=== PATIENT | female | born 1965 | race African-American/Black ===

== ENCOUNTER 2018-02-18 04:48 | Inpatient (IN) ==
[2018-02-18] MEDS ORDERED: methylPREDNISolone SOD SUC 125 MG/2 ML VIAL IV STA (05:23)
[2018-02-18] MEDS ORDERED: ALBUTEROL/IPRATROPIUM 3 ML NEB RESP TX STA (05:23)
[2018-02-18] MEDS ORDERED: FUROSEMIDE 100 MG/10 ML VIAL IV STA (05:23)
[2018-02-18 05:30] LABS: Basophils % 0.3 % (0.0-0.8); Eosinophils # 0.2 10*3/uL (0.0-0.87); Eosinophils % 2.9 % (0.00-10.9); Hematocrit 35.7 VOL% (35.7-47.0); Hemoglobin 11.8 GM/DL (12.0-16.0); Immature Granulocytes % 0.5 %; Immature Granulocytes Absolute 0.04 #; Lymphocytes # 1.5 10*3/uL (1.4-4.0); Lymphocytes % 21.2 % (21.3-54.2); Mean Corpuscular HGB Conc 33.1 GM/DL (32-36); Mean Corpuscular Hemoglobin 29 PG (27-34); Mean Corpuscular Volume 87.9 FL (87-102); Mean Platelet Volume 11.1 FL (9.6-12.0); Monocytes # 0.5 10*3/uL (0.11-0.8); Neutrophils % 68.1 % (38.7-73.9); Platelet Count 299 T/CUMM (130-400); Red Blood Count 4.06 MC/CUMM (3.8-5.5); Red Cell Distribution Width 15.4 % (9.3-17.3); White Blood Count 7.3 T/CUMM (4-12)
[2018-02-18 05:34] LABS: INR 0.9; PT Patient Result 9.9 SECS
[2018-02-18 05:42] LABS: Albumin 3.6 G/DL (3.4-5.0); Bilirubin,Total 0.8 MG/DL (0.2-1.0); Calcium 8.6 MG/DL (8.5-10.1); Osmolality,Calculated 276.5 MOS/KG (273-304); Potassium 3.4 MMOL/L (3.5-5.1); Total Protein 7.2 G/DL (6.4-8.3)
[2018-02-18 05:57] LABS: ABG Base Excess -0.8 MMOL/L (-2.5-2.5); ABG HCO3 23.8 MMOL/L (20-26); ABG Oxygen Saturation 98.2 % (95-100); ABG PCO2 41.3 MM HG (35-48); ABG PH 7.379 (7.35-7.45); ABG TCO2 21.7 MMOL/L (23-27); Allen Test Positive
[2018-02-18] MEDS ORDERED: ASPIRIN CHEW 81 MG TABLET PO STA (06:22)
[2018-02-18] MEDS ORDERED: ALBUTEROL/IPRATROPIUM 3 ML NEB RESP TX PRN (08:55)
[2018-02-18] MEDS ORDERED: ALBUTEROL 2.5 MG/3 ML NEB RESP TX PRN (08:56)
[2018-02-18] MEDS ORDERED: GABAPENTIN 600 MG TABLET PO SCH (09:00)
[2018-02-18] MEDS: hydrALAZINE 10 MG TABLET PO SCH (11:13)
[2018-02-18] MEDS: oxyCODONE/ACETAMINOPHEN 5-325 MG TABLET PO PRN (11:13)
[2018-02-18] MEDS: DULoxetine 20 MG CAPSULE PO SCH (11:13)
[2018-02-18] MEDS: FOLIC ACID 1 MG TABLET PO SCH (11:13)
[2018-02-18] MEDS: PANTOPRAZOLE 40 MG TABLET PO SCH (11:13)
[2018-02-18] MEDS: predniSONE 5 MG TABLET PO SCH (11:13)
[2018-02-18] MEDS: GABAPENTIN 300 MG CAPSULE PO SCH ×2 (15:55→20:51)
[2018-02-18] MEDS: FUROSEMIDE 40 MG/4 ML VIAL IV SCH (15:57)
[2018-02-18] MEDS ORDERED: tiZANidine 4 MG TABLET PO PRN (17:17)
[2018-02-18] MEDS: TEMAZEPAM 15 MG CAPSULE PO PRN (20:51)
[2018-02-18] MEDS: POTASSIUM CHLORIDE 20 MEQ TABLET PO PRN ×2 (20:51→22:47)
[2018-02-18] MEDS: tiZANidine 4 MG TABLET PO PRN (20:52)
[2018-02-19] MEDS: POTASSIUM CHLORIDE 20 MEQ TABLET PO PRN (00:55)
[2018-02-19 06:52] LABS: Basophils % 0.1 % (0.0-0.8); Eosinophils % 0.2 % (0.00-10.9); Hemoglobin 12.5 GM/DL (12.0-16.0); Immature Granulocytes % 0.6 %; Immature Granulocytes Absolute 0.07 #; Lymphocytes # 1.4 10*3/uL (1.4-4.0); Lymphocytes % 11.2 % (21.3-54.2); Mean Corpuscular HGB Conc 32.1 GM/DL (32-36); Mean Corpuscular Hemoglobin 28 PG (27-34); Mean Corpuscular Volume 87.2 FL (87-102); Mean Platelet Volume 11.5 FL (9.6-12.0); Monocytes # 1.3 10*3/uL (0.11-0.8); Monocytes % 10.1 % (1.7-12.7); Neutrophils # 9.9 10*3/uL (1.4-7.4); Neutrophils % 77.8 % (38.7-73.9); Platelet Count 359 T/CUMM (130-400); Red Blood Count 4.47 MC/CUMM (3.8-5.5); Red Cell Distribution Width 15.7 % (9.3-17.3); White Blood Count 12.7 T/CUMM (4-12)
[2018-02-19 07:29] LABS: Calcium 9.3 MG/DL (8.5-10.1); Osmolality,Calculated 273.7 MOS/KG (273-304); Potassium 4.1 MMOL/L (3.5-5.1)
[2018-02-19] MEDS: predniSONE 5 MG TABLET PO SCH (08:50)
[2018-02-19] MEDS: hydrALAZINE 10 MG TABLET PO SCH (08:50)
[2018-02-19] MEDS: DULoxetine 20 MG CAPSULE PO SCH (08:50)
[2018-02-19] MEDS: PANTOPRAZOLE 40 MG TABLET PO SCH (08:51)
[2018-02-19] MEDS: GABAPENTIN 300 MG CAPSULE PO SCH ×3 (08:51→20:27)
[2018-02-19] MEDS: oxyCODONE/ACETAMINOPHEN 5-325 MG TABLET PO PRN ×2 (09:00→18:02)
[2018-02-19] MEDS: tiZANidine 4 MG TABLET PO PRN ×2 (09:01→18:02)
[2018-02-19] MEDS: FUROSEMIDE 40 MG/4 ML VIAL IV SCH ×2 (09:02→15:29)
[2018-02-19] MEDS: FOLIC ACID 1 MG TABLET PO SCH (15:36)
[2018-02-19] MEDS: ENOXAPARIN 40 MG/0.4 ML SYRINGE SUBCUT SCH (18:03)
[2018-02-19] MEDS: TEMAZEPAM 15 MG CAPSULE PO PRN (20:27)
[2018-02-19] MEDS: HYDROcodone/CHLORPHENIRAMINE ER 5 ML UDCUP PO PRN (22:40)
[2018-02-20] MEDS: DULoxetine 20 MG CAPSULE PO SCH (08:48)
[2018-02-20] MEDS: FUROSEMIDE 40 MG/4 ML VIAL IV SCH ×2 (08:48→15:52)
[2018-02-20] MEDS: oxyCODONE/ACETAMINOPHEN 5-325 MG TABLET PO PRN ×3 (08:48→23:24)
[2018-02-20] MEDS: hydrALAZINE 10 MG TABLET PO SCH (08:48)
[2018-02-20] MEDS: GABAPENTIN 300 MG CAPSULE PO SCH ×3 (08:48→20:31)
[2018-02-20] MEDS: predniSONE 5 MG TABLET PO SCH (08:48)
[2018-02-20] MEDS: FOLIC ACID 1 MG TABLET PO SCH (08:48)
[2018-02-20] MEDS: PANTOPRAZOLE 40 MG TABLET PO SCH (08:48)
[2018-02-20] MEDS: tiZANidine 4 MG TABLET PO PRN ×3 (08:48→23:24)
[2018-02-20] MEDS: ENOXAPARIN 40 MG/0.4 ML SYRINGE SUBCUT SCH (15:52)
[2018-02-20] MEDS: TEMAZEPAM 15 MG CAPSULE PO PRN (20:31)
[2018-02-20] MEDS: HYDROcodone/CHLORPHENIRAMINE ER 5 ML UDCUP PO PRN (20:54)
[2018-02-21 03:25] VITALS: BP 119/76
[2018-02-21 06:06] LABS: Basophils % 0.4 % (0.0-0.8); Eosinophils # 0.2 10*3/uL (0.0-0.87); Eosinophils % 2.2 % (0.00-10.9); Hematocrit 41.8 VOL% (35.7-47.0); Hemoglobin 12.9 GM/DL (12.0-16.0); Immature Granulocytes % 0.6 %; Immature Granulocytes Absolute 0.06 #; Lymphocytes # 2.8 10*3/uL (1.4-4.0); Lymphocytes % 29.7 % (21.3-54.2); Mean Corpuscular HGB Conc 30.9 GM/DL (32-36); Mean Corpuscular Hemoglobin 28 PG (27-34); Mean Corpuscular Volume 89.1 FL (87-102); Mean Platelet Volume 11.4 FL (9.6-12.0); Monocytes # 0.9 10*3/uL (0.11-0.8); Neutrophils # 5.4 10*3/uL (1.4-7.4); Neutrophils % 57.1 % (38.7-73.9); Platelet Count 388 T/CUMM (130-400); Red Blood Count 4.69 MC/CUMM (3.8-5.5); Red Cell Distribution Width 15.6 % (9.3-17.3); White Blood Count 9.4 T/CUMM (4-12)
[2018-02-21 06:25] LABS: Calcium 8.5 MG/DL (8.5-10.1); Potassium 3.2 MMOL/L (3.5-5.1)
[2018-02-21] MEDS ORDERED: FUROSEMIDE 40 MG TABLET PO SCH (08:00)
[2018-02-21] MEDS: GABAPENTIN 300 MG CAPSULE PO SCH (08:28)
[2018-02-21] MEDS: POTASSIUM CHLORIDE 20 MEQ TABLET PO PRN ×2 (08:28→11:15)
[2018-02-21] MEDS: DULoxetine 20 MG CAPSULE PO SCH (08:28)
[2018-02-21] MEDS: FOLIC ACID 1 MG TABLET PO SCH (08:28)
[2018-02-21] MEDS: hydrALAZINE 10 MG TABLET PO SCH (08:29)
[2018-02-21] MEDS: PANTOPRAZOLE 40 MG TABLET PO SCH (08:29)
[2018-02-21] MEDS: predniSONE 5 MG TABLET PO SCH (08:29)
[2018-02-21] MEDS: oxyCODONE/ACETAMINOPHEN 5-325 MG TABLET PO PRN (09:32)
[2018-02-21] MEDS: tiZANidine 4 MG TABLET PO PRN (09:32)
== END 2018-02-21 14:08 | disposition home or self-care (01) | DRG 189 ==
LOC: EDUNIT# → EDBD → N.ED 04:48 → N.EDINP 08:41 → SUATTDRO 08:41 → N.5E 08:59
PROVIDERS: ADMIT Family Medicine; ATTEND Internal Medicine